=== PATIENT | female | born 1975 ===

== ENCOUNTER → 2022-03-26 08:00 | Outpatient (CLI) | payer OTHER ==
[~2022-03-26] VITALS: Ht 162.6 cm; Wt 68.9 kg
== END | disposition home or self-care (01) ==
LOC: LAB 08:00 → ADM 12:30 → CIR.AMB 03-28 08:30 → EDSTATUS 03-28 12:30
PROVIDERS: ATTEND Surgery
DX: Z20.828 Contact with and (suspected) exposure to other viral communicable diseases (principal)